=== PATIENT | male | born 1940 | race Caucasian/White ===

== ENCOUNTER 2018-05-11 07:33 | Inpatient (IN) | payer OTHER ==
[~2018-05-11] VITALS: Ht 165.1 cm; Wt 92.6 kg
[2018-05-11] MEDS ORDERED: VIAGRA100 MG PO (08:01)
[2018-05-11] MEDS ORDERED: METFORMIN HCL500 MG PO (08:02)
[2018-05-11] MEDS ORDERED: GLIPIZIDE10 M3 PO (08:02)
[2018-05-11] MEDS ORDERED: LIPI10 PO (08:03)
[2018-05-11] MEDS ORDERED: LOSARTAN POTAS100 M1 PO (08:03)
[2018-05-11] MEDS ORDERED: VITAMIN D32000 I2 PO (08:03)
[2018-05-11] MEDS ORDERED: GOOD SENSE ASP325 MG PO (08:04)
[2018-05-11] MEDS ORDERED: LASIX20 MG PO (08:05)
[2018-05-11] MEDS ORDERED: TEMAZEPAM15 MG PO (08:05)
[2018-05-11 08:06] LABS: CALCIUM 8.5 mg/dL (8.5-10.1); CARBON DIOXIDE 28.1 mmol/L (21-32); CHLORIDE SERUM 100 mmol/L (98-107); CREATININE SERUM 2.1 mg/dL (0.7-1.3); GLUCOSE SERUM 266 mg/dL (74-106); POTASSIUM SERUM 4.7 mmol/L (3.5-5.1); SODIUM SERUM 134 mmol/L (136-145)
[2018-05-11 08:11] LABS: ALBUMIN 3.4 g/dL (3.4-5.0); ALKALINE PHOSPHATASE 106 U/L (46-116); ALT/SGPT 17 U/L (16-63); AST/SGOT 15 U/L (15-37); BILIRUBIN TOTAL 0.4 mg/dL (0.20-1.00); HDL CHOLESTEROL 38 mg/dL (40-60)
[2018-05-11 08:12] LABS: CHOLESTEROL 209 mg/dL (<200)
[2018-05-11 08:20] LABS: BASOPHIL % 0.7 % (0-2); PLATELET COUNT 187 x10^3mcL (130-400); RED CELL DISTRIBUTION WIDTH 13.5 % (11.5-14.5)
[2018-05-11 10:08] LABS: microscopic required? NO
[2018-05-11 10:36] LABS: urine erythrocyte NEGATIVE (NEGATIVE)
[2018-05-11 11:12] LABS: MAGNESIUM 2.7 mg/dL (1.8-2.4); PHOSPHOROUS 5.3 mg/dL (2.5-4.9)
[2018-05-11 11:13] LABS: CHOLESTEROL/HDL RATIO 5.5
[2018-05-11 11:20] LABS: T3 TOTAL 0.93 ng/mL
[2018-05-11 11:21] LABS: FREE T4 1.23 ng/dL (0.76-1.46); FREE THYROXINE INDEX 2.8 ug/dL (1.4-4.5); T4(THYROXINE) 7.6 ug/dL (4.7-13.3)
[2018-05-11 11:38] VITALS: BP 115/98
[2018-05-11 12:13] VITALS: BP 115/98
[2018-05-11 15:33] LABS: AMPHETAMINE QUAL UR NONE DETECTED (See below)
[2018-05-11 16:37] VITALS: BP 165/76
[2018-05-11 17:55] VITALS: BP 135/66
[2018-05-11 19:50] VITALS: BP 144/65
[2018-05-11 23:57] VITALS: BP 121/58
[2018-05-12 00:07] VITALS: BP 146/65
[2018-05-12 05:30] VITALS: BP 155/61
[2018-05-12 08:42] LABS: BASOPHIL % 0.1 % (0-2); PLATELET COUNT 192 x10^3mcL (130-400); RED CELL DISTRIBUTION WIDTH 13.8 % (11.5-14.5)
[2018-05-12 09:08] LABS: CALCIUM 9.4 mg/dL (8.5-10.1); CARBON DIOXIDE 29.4 mmol/L (21-32); CHLORIDE SERUM 97 mmol/L (98-107); GLUCOSE SERUM 244 mg/dL (74-106); MAGNESIUM 2.1 mg/dL (1.8-2.4); PHOSPHOROUS 4.6 mg/dL (2.5-4.9); POTASSIUM SERUM 4.6 mmol/L (3.5-5.1); SODIUM SERUM 135 mmol/L (136-145)
[2018-05-12 09:52] VITALS: BP 135/52
[2018-05-12 12:18] VITALS: Ht 165.1 cm; Wt 92.6 kg
[2018-05-12 12:53] VITALS: BP 108/56
[2018-05-12 18:42] VITALS: BP 154/74
[2018-05-12 20:21] VITALS: BP 121/76
[2018-05-13 05:18] VITALS: BP 137/65
[2018-05-13 08:45] LABS: CALCIUM 7.9 mg/dL (8.5-10.1); CARBON DIOXIDE 28.8 mmol/L (21-32); CHLORIDE SERUM 101 mmol/L (98-107); CREATININE SERUM 1.9 mg/dL (0.7-1.3); GLUCOSE SERUM 274 mg/dL (74-106); PHOSPHOROUS 3.6 mg/dL (2.5-4.9); POTASSIUM SERUM 4.3 mmol/L (3.5-5.1); SODIUM SERUM 134 mmol/L (136-145)
[2018-05-13 09:24] VITALS: BP 138/52
[2018-05-13] MEDS ORDERED: IPRATROPIUM BROM3 M2 HHN (15:58)
[2018-05-13] MEDS ORDERED: COU10 PO (15:59)
[2018-05-13] MEDS ORDERED: LOV100I SC (15:59)
[2018-05-13] MEDS ORDERED: LIPI10 PO (15:59)
[2018-05-13] MEDS ORDERED: BG FS (16:01)
[2018-05-13] MEDS ORDERED: BUDESONIDE0.5 MG/2 M IH (16:02)
[2018-05-13] MEDS ORDERED: DUL5 PO (16:03)
[2018-05-13] MEDS ORDERED: GLU10 PO (16:04)
[2018-05-13 16:21] VITALS: BP 133/66
[2018-05-13 17:10] LABS: BASOPHIL % 0.2 % (0-2); PLATELET COUNT 172 x10^3mcL (130-400); RED CELL DISTRIBUTION WIDTH 13.9 % (11.5-14.5)
[2018-05-13 17:16] VITALS: BP 136/60
[2018-05-13 21:23] VITALS: BP 129/56
[2018-05-14 05:14] VITALS: BP 120/60
[2018-05-14 06:23] LABS: BASOPHIL % 0.2 % (0-2); PLATELET COUNT 146 x10^3mcL (130-400); RED CELL DISTRIBUTION WIDTH 14.4 % (11.5-14.5)
[2018-05-14 06:42] LABS: CALCIUM 8.5 mg/dL (8.5-10.1); CARBON DIOXIDE 28.9 mmol/L (21-32); CHLORIDE SERUM 101 mmol/L (98-107); CREATININE SERUM 2.3 mg/dL (0.7-1.3); GLUCOSE SERUM 202 mg/dL (74-106); MAGNESIUM 2.1 mg/dL (1.8-2.4); PHOSPHOROUS 3.3 mg/dL (2.5-4.9); POTASSIUM SERUM 4.5 mmol/L (3.5-5.1); SODIUM SERUM 137 mmol/L (136-145)
[2018-05-14 08:30] VITALS: BP 93/48
[2018-05-14 12:43] VITALS: BP 148/76
[2018-05-14 14:00] VITALS: BP 118/45
[2018-05-14 17:20] VITALS: BP 118/42
== END 2018-05-14 20:49 | disposition home or self-care (01) | DRG 306 ==
LOC: ED 07:33 → DU 09:24 → IC 09:24 → DU 05-12 02:12
PROVIDERS: Emergency Medicine; Family Medicine
DX: I35.1 Nonrheumatic aortic (valve) insufficiency (principal); J96.01 Acute respiratory failure with hypoxia; N17.0 Acute kidney failure with tubular necrosis; J44.1 Chronic obstructive pulmonary disease with (acute) exacerbation; D68.59 Other primary thrombophilia; E11.65 Type 2 diabetes mellitus with hyperglycemia; I48.0 Paroxysmal atrial fibrillation; I16.0 Hypertensive urgency; D64.9 Anemia, unspecified; E83.41 Hypermagnesemia; E83.39 Other disorders of phosphorus metabolism; E78.1 Pure hyperglyceridemia; E78.5 Hyperlipidemia, unspecified; I34.2 Nonrheumatic mitral (valve) stenosis; E66.9 Obesity, unspecified; Z95.2 Presence of prosthetic heart valve; Z79.4 Long term (current) use of insulin; Z68.35 Body mass index [BMI] 35.0-35.9, adult; Z87.891 Personal history of nicotine dependence; Z79.01 Long term (current) use of anticoagulants; Z79.84 Long term (current) use of oral hypoglycemic drugs
CPT/HCPCS: 36600; 82962; 83880; 84439; 97116-GP; 97535-GP; J1644; J1650; J1940; J1956; J2920; J2930; J3490; J7030; J7613; J7620; J7626; J7644; Q0092